=== PATIENT | female | born 1985 | race Caucasian/White ===

== ENCOUNTER 2017-03-12 15:48 | Emergency (ER) | payer MEDICAID ==
[2017-03-12 15:52] VITALS: O2SAT 95
[2017-03-12] MEDS ORDERED: KETOROLAC 30 MG/1 ML SDV IVP ONE (16:47)
[2017-03-12] MEDS ORDERED: DEXAMETHASONE 10 MG/ML VIAL IVP ONE (16:47)
[2017-03-12] MEDS ORDERED: PROMETHAZINE HCL 25 MG/ML INJ IVP ONE (16:47)
--- NOTE | 2017-03-12 16:47 | EDPHY ---
H & P Stated Complaint: OHARA today Time Seen by Provider: 03/12/17 16:46 HPI/ROS: CHIEF COMPLAINT: Migraine headache HISTORY OF PRESENT ILLNESS: Patient presents to the ED with complaints of an acute migraine headache. The symptoms began earlier today. Her migraine is fairly typical in nature and is characterizes severe right retro-orbital pain with radiation to her right occiput. The patient denies any associated numbness or weakness. She denies fever or recent infectious symptoms. The patient did take Tylenol and ibuprofen at home without improvement of her symptoms. Patient reports that she was last treated for migraine headache approximately 1 year ago in the emergency department. The patient denies any additional acute medical complaints. She currently rates her headache as an 8/ 10. REVIEW OF SYSTEMS: A comprehensive 10 point review of systems is otherwise negative aside from elements mentioned in the history of present illness. Source: Patient Exam Limitations: No limitations - Personal History LMP (Females 10-55): Hysterectomy Current Tetanus/Diphtheria Vaccine: Yes Current Tetanus Diphtheria and Acellular Pertussis (TDAP): Yes Tetanus Vaccine Date: <10yrs - Medical/Surgical History Hx Asthma: No Hx Chronic Respiratory Disease: No Hx Diabetes: No Hx Cardiac Disease: No Hx Renal Disease: No Hx Cirrhosis: No Hx Alcoholism: No Hx HIV/AIDS: No Hx Splenectomy or Spleen Trauma: No Other PMH: Ankle fx, preeclampsia, Migraine H/A, L OVARY REMOVED-CYST , PARTIAL HYSTERECTOMY - Social History Smoking Status: Current every day smoker - Physical Exam Exam: General Appearance: Alert, obese female, no acute distress Eyes: Pupils equal and round no pallor or injection ENT, Mouth: Mucous membranes moist Respiratory: There are no retractions, lungs are clear to auscultation Cardiovascular: Regular rate and rhythm Gastrointestinal: Abdomen is soft and nontender, no masses, bowel sounds normal Neurological: A&O, normal motor function, normal sensory exam, normal cranial nerves Skin: Warm and dry, no rashes Musculoskeletal: Neck is supple nontender, specifically no meningeal symptoms Extremities: symmetrical, full range of motion Constitutional: Initial Vital Signs Temperature (C) 37.2 C 03/12/17 15:50 Heart Rate 90 03/12/17 15:50 Respiratory Rate 16 03/12/17 15:50 Blood Pressure 118/84 H 03/12/17 15:50 O2 Sat (%) 95 03/12/17 15:50 O2 Delivery Mode Room Air Allergies/Adverse Reactions: amoxicillin trihydrate [From Augmentin] Allergy (Verified 03/11/17 17:23) metoclopramide HCl [From Reglan] Allergy (Verified 03/11/17 17:23) Sulfa (Sulfonamide Antibiotics) Allergy (Verified 03/11/17 17:23) sumatriptan [From Imitrex] Allergy (Verified 03/11/17 17:23) Home Medications: Medication Instructions Recorded Nortriptyline HCl 01/28/16 Hydrochlorothiazide 12.5 mg PO DAILY 03/11/17 Hydrocodone/APAP 5/325 5 mg PO 03/11/17 Medical Decision Making ED Course/Re-evaluation: The patient presents to the ED with migraine headache. She reports fairly typical symptoms. The patient had an IV established. She received IV Reglan, Decadron, Toradol and Phenergan. The patient also received 1 mg of IV Ativan. The patient received a L of normal saline. She had serial examinations in the ED by myself. The patient remained with a normal neurologic examination. The patient did have some improvement of her symptoms. At this point time I doubt the patient has meningitis or a critical GRIND OPERATOR emergency. I do feel the patient can continue to take ibuprofen and her regular prescribed medication for pain. The patient should follow up with her primary care provider for a recheck within the week. She is discharged home with customary aftercare instructions and return precautions. Differential Diagnosis: Differential diagnosis considered includes migraine headache, tension headache, anxiety syndrome, dehydration, metabolic abnormality - Data Points Medications Given: Discontinued Medications Dexamethasone (Decadron Injection) 10 mg IVP EDNOW ONE Stop: 03/12/17 16:48 Last Admin: 03/12/17 16:57 Dose: 10 mg Ketorolac Tromethamine (Toradol) 30 mg IVP EDNOW ONE Stop: 03/12/17 16:48 Last Admin: 03/12/17 16:57 Dose: 30 mg Lorazepam (Ativan Injection) 1 mg IVP EDNOW ONE Stop: 03/12/17 17:50 Last Admin: 03/12/17 17:52 Dose: 1 mg Promethazine HCl (Phenergan) 25 mg IVP EDNOW ONE Stop: 03/12/17 16:48 Last Admin: 03/12/17 16:57 Dose: 25 mg Departure - Departure Disposition: Home, Routine, Self-Care Clinical Impression: Migraine headache Condition: Good Instructions: Acute Headache (ED) Additional Instructions: 1. Take Ibuprofen or Motrin 600 mg by mouth three times a day. 2. Please continue your regular medications. 3. Please follow up with your primary care provider Referrals: Denise Pena NP [Primary Care Provider] - As per Instructions
[2017-03-12] MEDS ORDERED: LORazepam 2 MG/ML INJ IVP ONE (17:49)
[2017-03-12 18:37] VITALS: BP 115/74; PULSE 68; RESP 18; TEMP 98.1
== END 2017-03-12 18:49 | disposition home or self-care (01) ==
DX: G43.909 Migraine, unspecified, not intractable, without status migrainosus (principal); F17.200 Nicotine dependence, unspecified, uncomplicated
CPT/HCPCS: 96374; J1100; J1885; J2060; J2550

== ENCOUNTER 2017-03-13 13:01 | Day surgery (SDC) | payer MEDICAID ==
[2017-03-13] MEDS ORDERED: MIDAZOLAM 2 MG/2 ML VIAL ONE (14:58)
[2017-03-13] MEDS ORDERED: NALOXONE HCL 0.4 MG/ML INJ ONE (14:59)
[2017-03-13] MEDS ORDERED: fentaNYL 100 MCG/2 ML INJ ONE (14:59)
[2017-03-13] MEDS ORDERED: FLUMAZENIL 0.5 MG/5 ML MDV IVP ONE (14:59)
[2017-03-13] MEDS ORDERED: TRIAMCINOLONE ACETONIDE 200 MG/5 ML MDV IM ONE (17:29)
[2017-03-13] MEDS ORDERED: IOPAMIDOL (ISOVUE-M 300) 15 ML VIAL ONE (17:29)
[2017-03-13 18:15] VITALS: RESP 12
[2017-03-13 18:19] VITALS: BP 128/87; O2SAT 100
[2017-03-13 18:41] VITALS: PULSE 67
== END 2017-03-13 18:27 | disposition home or self-care (01) ==
LOC: FIMAGING 13:01
PROVIDERS: ATTEND Nurse Practitioner Family
PROC: 3E0S3BZ Introduction of Anesthetic Agent into Epidural Space, Percutaneous Approach (ICD-10-PCS; principal; 2017-03-13 17:40)
PROC: 3E0S33Z Introduction of Anti-inflammatory into Epidural Space, Percutaneous Approach (ICD-10-PCS; principal; 2017-03-13 17:40)
DX: M54.16 Radiculopathy, lumbar region (principal)
CPT/HCPCS: J2250; J2310; J3010; J3301; Q9967

== ENCOUNTER 2017-08-19 19:47 | Emergency (ER) | payer MEDICAID ==
[2017-08-19 19:54] VITALS: RESP 16; O2SAT 96
--- NOTE | 2017-08-19 20:46 | EDPHY ---
H & P Stated Complaint: Sore throat, cough, dizzy, congestion - Personal History LMP (Females 10-55): Hysterectomy Current Tetanus/Diphtheria Vaccine: Yes Current Tetanus Diphtheria and Acellular Pertussis (TDAP): Yes Tetanus Vaccine Date: <10yrs - Medical/Surgical History Hx Asthma: No Hx Chronic Respiratory Disease: No Hx Diabetes: No Hx Cardiac Disease: No Hx Renal Disease: No Hx Cirrhosis: No Hx Alcoholism: No Hx HIV/AIDS: No Hx Splenectomy or Spleen Trauma: No Other PMH: Ankle fx, preeclampsia, Migraine H/A, L OVARY REMOVED-CYST , PARTIAL HYSTERECTOMY, ear tubes, TIA - Social History Smoking Status: Current every day smoker Time Seen by Provider: 08/19/17 20:21 HPI/ROS: CHIEF COMPLAINT: URI symptoms x1 week HISTORY OF PRESENT ILLNESS: 32-year-old immunocompetent female, daily smoker, complaining of 1 week of URI symptoms, congestion, nonproductive cough, sore throat. No influenza vaccination. Her partner sick with similar. Does not feel like she is getting him improved. Denies: Abdominal pain, nausea, vomiting, rash, nuchal rigidity. REVIEW OF SYSTEMS: A ten point review of systems was performed and is negative with the exception of the items mentioned in the HPI PAST MEDICAL & SURGICAL HISTORY: No pertinent medical or surgical history SOCIAL HISTORY: Daily smoker PHYSICAL EXAM (Prior to examination, patient consented to physical exam, hands were washed and my usual and customary physical exam procedures followed) 1) GENERAL: Well-developed, well-nourished, alert and oriented. Appears to be in no acute distress. 2) HEAD: Normocephalic, atraumatic 3) HEENT: Pupils equal, round, reactive to light bilaterally. Sclera anicteric. Nasopharynx, oropharynx, clear, no lesions. 4) NECK: Full range of motion, no meningeal signs. 5) LUNGS: Clear auscultation bilaterally, no wheezes, no rhonchi, no retractions. 6) HEART: Regular rate and rhythm, no murmur, no heave, no gallop. 7) ABDOMEN: No guarding, no rebound, no focal tenderness, negative McBurney's, negative Marcano's, negative Rovsing's, negative peritoneal sign, 8) MUSCULOSKELETAL: Moving all extremities, no focal areas of tenderness, no obvious trauma. No peripheral edema or discoloration. 9) BACK: No CVA tenderness, no midline vertebral tenderness, no fluctuance, no step-off, no obvious trauma, no visual or palpable abnormality. 10) SKIN: No rash, no petechiae. 11) Psychiatric: Patient is oriented X 3, there is no agitation. DIFFERENTIAL DIAGNOSIS: In no particular include but limited to influenza, pneumonia, bronchitis (Laura Walters) Constitutional: Initial Vital Signs Heart Rate 107 H 08/19/17 19:50 Respiratory Rate 16 08/19/17 19:50 Blood Pressure 138/101 H 08/19/17 19:50 O2 Sat (%) 96 08/19/17 19:50 O2 Delivery Mode Room Air O2 (L/minute) 37.1 Allergies/Adverse Reactions: amoxicillin trihydrate [From Augmentin] Allergy (Verified 03/11/17 17:23) diphenhydramine [From Benadryl] Allergy (Verified 08/19/17 19:54) metoclopramide HCl [From Reglan] Allergy (Verified 03/11/17 17:23) Sulfa (Sulfonamide Antibiotics) Allergy (Verified 03/11/17 17:23) sumatriptan [From Imitrex] Allergy (Verified 03/11/17 17:23) Home Medications: Medication Instructions Recorded AZITHROMYCIN [Z-PACK] 500 mg PO DAILY #1 packet 08/19/17 Albuterol [Proventil Inhaler HFA 1 - 2 puffs IH Q4PRN PRN #1 mdi 08/19/17 (*)] Benzonatate [Tessalon Pearles (RX)] 200 mg PO TID PRN #15 cap 08/19/17 Fluconazole [Diflucan (*)] 150 mg PO ONCE #0 tab 08/19/17 fentaNYL 08/19/17 oxyCODONE IR 08/19/17 Medical Decision Making ED Course/Re-evaluation: I do not identify indication for chest x-ray as the patient's lungs are clear bilaterally, has a normal pulse ox, speaking full sentences, no signs of respiratory distress. Doubt influenza. The patient understands that this diagnosis is provisional and can never be 100% accurate. Usual and customary warnings were given concerning the clinical impression and all the patient's questions were answered. The patient was instructed to return to the emergency department should her symptoms worsen or return, or develop any new symptoms, otherwise to followup as directed in discharge instructions. Care of patient under supervision of secondary supervising physician Dr Dent . Because patient's in a prescription for antibiotics request Diflucan noting that she will commonly develop yeast vaginitis. (Laura Walters) The patient was evaluated and managed by the physician assistant corporate controller. I have reviewed this chart and I agree with the findings and plan of care as documented , as indicated by my signature. I am the secondary supervising physician. ( Crystal Dent) Departure - Departure Disposition: Home, Routine, Self-Care Clinical Impression: Upper respiratory infection Condition: Good Instructions: Upper Respiratory Infection (ED) Additional Instructions: Return to the emergency department immediately for change in breathing habits, change in voice, change in swallowing habits, change in mental status, or any other symptoms that concern you. Referrals: [facility],. [Clinic] - 2-3 days, call for appt. Prescriptions: Albuterol [Proventil Inhaler HFA (*)] 1 - 2 puffs IH Q4PRN PRN #1 mdi PRN Reason: Cough, Moderate AZITHROMYCIN [Z-PACK] 500 mg PO DAILY #1 packet Benzonatate [Tessalon Pearles (RX)] 200 mg PO TID PRN #15 cap PRN Reason: Cough, Moderate Fluconazole [Diflucan (*)] 150 mg PO ONCE #0 tab
[2017-08-19 20:53] VITALS: BP 141/74; PULSE 74; TEMP 97.9
== END 2017-08-19 20:53 | disposition home or self-care (01) ==
DX: J06.9 Acute upper respiratory infection, unspecified (principal); F17.200 Nicotine dependence, unspecified, uncomplicated

== ENCOUNTER 2018-01-04 22:18 | Emergency (ER) | payer MEDICAID ==
--- NOTE | 2018-01-04 22:33 | EDPHY ---
H & P Stated Complaint: OHARA, N/V x3 days Time Seen by Provider: 01/04/18 22:32 HPI/ROS: HPI CHIEF COMPLAINT: Right-sided headache, nausea, vomiting HISTORY OF PRESENT ILLNESS: Patient is a 32-year-old female, she has a history of migraine headaches similar to this headache. She presents emergency room the right-sided throbbing headache behind her right eye. And right forehead. She denies any neck pain. Denies trauma. Denies chest pain or shortness of breath. Denies fever. States this been going on for 2-3 days. She has had associated nausea vomiting with it. Photophobia and phonophobia. States feels very similar to previous migraines but somewhat more intense. Denies any visual disturbance. She decided come the emergency room as her pain is persisted despite taking oral Dilaudid. Past Medical History: Migraine headaches, chronic back pain on chronic Dilaudid. Past Surgical History: No recent surgical history Social History: Denies daily use of drugs alcohol tobacco. Family History: Noncontributory ROS REVIEW OF SYSTEMS: A comprehensive 10 point review of systems is otherwise negative aside from elements mentioned in the history of present illness. Exam Constitutional appears nontoxic no acute distress, triage nursing summary reviewed, vital signs reviewed, awake/alert. Eyes normal conjunctivae and sclera, EOMI, PERRLA. HENT normal inspection, atraumatic, moist mucus membranes, no epistaxis, neck supple/ no meningismus, no raccoon eyes. Respiratory clear to auscultation bilaterally, normal breath sounds, no respiratory distress, no wheezing. Cardiovascular rate normal, regular rhythm, no murmur, no edema, distal pulses normal. Gastrointestinal soft, non-tender, no rebound, no guarding, normal bowel sounds, no distension, no pulsatile mass. Genitourinary no CVA tenderness. Musculoskeletal no midline vertebral tenderness, full range of motion, no calf swelling, no tenderness of extremities, no meningismus, good pulses, neurovascularly intact. Skin pink, warm, & dry, no rash, skin atraumatic. Neurologic normal neurological exam no focal neuro deficit or cranial nerve deficit on exam, awake, alert and oriented x 3, AAOx3, moves all 4 extremities equally, motor intact, sensory intact, CN II-XII intact, normal cerebellar, normal vision, normal speech. Psychiatric normal mood/affect. Heme/Lymph/Immune no lymphadenopathy. Differential Diagnosis: Includes but is not limited to in a particular order migraine headache, tension headache, cluster headache, intracranial bleed, tumor , dehydration electrolyte disturbance, subarachnoid Medical Decision Making: Plan for this patient IV establishment with IV medication for migraine headache. Gentle IV fluids. Check basic blood work, CT scan head without contrast. Re-evaluate. Re-evaluation: CT scan head without contrast: Negative for acute bleed. Called to me by Dr. Ledesma. [id number]: Patient re-evaluated this time her neurological exam is unremarkable. She is resting comfortably. Patient CT scan of the head does not show evidence of acute bleed. She is feeling better after IV medications including migraine cocktail. IV fluids. She is comfortable being discharged home. I do recommend she follows up with her doctor. Will give a prescription for [place] [employer] supply for pain control. Return precautions discussed with her. She understands return emergency room she develops worsening headache, fever, vomiting. Source: Patient - Personal History LMP (Females 10-55): Hysterectomy Current Tetanus/Diphtheria Vaccine: Yes Tetanus Vaccine Date: <10yrs - Medical/Surgical History Hx Asthma: No Hx Chronic Respiratory Disease: No Hx Diabetes: No Hx Cardiac Disease: No Hx Renal Disease: No Hx Cirrhosis: No Hx Alcoholism: No Hx HIV/AIDS: No Hx Splenectomy or Spleen Trauma: No Other PMH: Ankle fx, preeclampsia, Migraine H/A, L OVARY REMOVED-CYST , PARTIAL HYSTERECTOMY, ear tubes, TIA - Social History Smoking Status: Current every day smoker Constitutional: Initial Vital Signs Temperature (C) 36.7 C 01/04/18 22:20 Heart Rate 106 H 01/04/18 22:20 Respiratory Rate 18 01/04/18 22:20 Blood Pressure 128/104 H 01/04/18 22:20 O2 Sat (%) 96 01/04/18 22:20 O2 Delivery Mode Room Air Allergies/Adverse Reactions: amoxicillin trihydrate [From Augmentin] Allergy (Verified 03/11/17 17:23) diphenhydramine [From Benadryl] Allergy (Verified 08/19/17 19:54) metoclopramide HCl [From Reglan] Allergy (Verified 03/11/17 17:23) Sulfa (Sulfonamide Antibiotics) Allergy (Verified 03/11/17 17:23) sumatriptan [From Imitrex] Allergy (Verified 03/11/17 17:23) Home Medications: Medication Instructions Recorded oxyCODONE IR 08/19/17 Dilaudid 01/04/18 Hydrocodone/APAP [[place] 1 - 2 tab PO Q4H PRN #7 tab 01/04/18325] Medical Decision Making - Diagnostics Imaging Results: Imaging Impressions Head CT 01/04/18 22:37 Impression: Mild chronic sinus related change. Otherwise normal CT head without contrast. Results called and discussed with Trip Pop MD at 01/04/2018 23:11. - Data Points Laboratory Results: Laboratory Results 01/04/18 22:42 01/04/18 22:42 01/04/18 01/04/18 22:42 22:42 WBC 8.01 10^3/uL 10^3/uL (3.80-9.50) RBC 5.21 10^6/uL 10^6/uL (4.18-5.33) Hgb 15.7 g/dL g/dL (12.6-16.3) Hct 44.9 % % (38.0-47.0) MCV 86.2 fL fL (81.5-99.8) MCH 30.1 pg pg (27.9-34.1) MCHC 35.0 g/dL g/dL (32.4-36.7) RDW 12.2 % % (11.5-15.2) Plt Count 234 10^3/uL 10^3/uL (150-400) MPV 10.2 fL fL (8.7-11.7) Neut % (Auto) 64.4 % % (39.3-74.2) Lymph % (Auto) 23.6 % % (15.0-45.0) Blount % (Auto) 8.4 % % (4.5-13.0) Eos % (Auto) 2.5 % % (0.6-7.6) Baso % (Auto) 0.6 % % (0.3-1.7) Nucleat RBC Rel Count 0.0 % % (0.0-0.2) Absolute Neuts (auto) 5.16 10^3/uL 10^3/uL (1.70-6.50) Absolute Lymphs (auto) 1.89 10^3/uL 10^3/uL (1.00-3.00) Absolute Monos (auto) 0.67 10^3/uL 10^3/uL (0.30-0.80) Absolute Eos (auto) 0.20 10^3/uL 10^3/uL (0.03-0.40) Absolute Basos (auto) 0.05 10^3/uL 10^3/uL (0.02-0.10) Absolute Nucleated RBC 0.00 10^3/uL 10^3/uL (0-0.01) Immature Gran % 0.5 % % (0.0-1.1) Immature Gran # 0.04 10^3/uL 10^3/uL (0.00-0.10) Sodium 138 mEq/L mEq/L (135-145) Potassium 3.5 mEq/L mEq/L (3.3-5.0) Chloride 104 mEq/L mEq/L (97-110) Carbon Dioxide 22 mEq/l mEq/l (22-31) Anion Gap 12 mEq/L mEq/L (8-16) BUN 12 mg/dL mg/dL (7-23) Creatinine 0.6 mg/dL mg/dL (0.6-1.0) Estimated GFR > 60 Glucose 106 mg/dL H mg/dL (70-100) Calcium 8.4 mg/dL L mg/dL (8.5-10.4) Medications Given: Discontinued Medications Dexamethasone (Decadron Injection) 10 mg IVP EDNOW ONE Stop: 01/04/18 22:37 Last Admin: 01/04/18 22:48 Dose: 10 mg Hydromorphone HCl (Dilaudid) 1 mg IVP EDNOW ONE Stop: 01/04/18 22:38 Last Admin: 01/04/18 22:48 Dose: 1 mg Sodium Chloride (Ns) 1,000 mls @ 0 mls/hr IV ONCE ONE; Wide Open PRN Reason: Protocol Stop: 01/04/18 22:37 Last Admin: 01/04/18 22:47 Dose: 1,000 mls Ketorolac Tromethamine (Toradol) 30 mg IVP EDNOW ONE Stop: 01/04/18 22:37 Last Admin: 01/04/18 22:49 Dose: 30 mg Promethazine HCl (Phenergan) 12.5 mg IVP ONCE ONE Stop: 01/04/18 22:38 Last Admin: 01/04/18 22:48 Dose: 12.5 mg Departure - Departure Disposition: Home, Routine, Self-Care Clinical Impression: Migraine headache Qualifiers: Migraine type: other Status migrainosus presence: without status migrainosus Intractability: not intractable Qualified Code(s): G43.809 - Other migraine, not intractable, without status migrainosus Condition: Good Instructions: Migraine Headache (ED) Additional Instructions: 1. Low stimulus environment over the next 2 days. 2. Follow up with her primary care doctor or neurologist. 3. Return if worsening symptoms. Referrals: NONE *PRIMARY CARE P,. [Primary Care Provider] - As per Instructions Prescriptions: Hydrocodone/APAP 5/325 [[place] 5/325] 1 - 2 tab PO Q4H PRN #7 tab PRN Reason: Pain, Moderate
[2018-01-04] MEDS ORDERED: NS 1,000 ML IV ONE (22:36)
[2018-01-04] MEDS ORDERED: DEXAMETHASONE 10 MG/ML VIAL IVP ONE (22:36)
[2018-01-04] MEDS ORDERED: KETOROLAC 30 MG/1 ML SDV IVP ONE (22:36)
[2018-01-04] MEDS ORDERED: PROMETHAZINE HCL 25 MG/ML INJ IVP ONE (22:37)
[2018-01-04] MEDS ORDERED: HYDROmorphONE/DILAUDID 2 MG/ML INJ IVP ONE (22:37)
[2018-01-04 22:52] LABS: PLATELET COUNT 234 10^3/uL (150-400)
[2018-01-04] MEDS ORDERED: HYDROCODONE/APAP 5/325 TAB PO ONE (23:54)
[2018-01-05 00:03] VITALS: BP 128/94
== END 2018-01-05 | disposition home or self-care (01) ==
DX: G43.809 Other migraine, not intractable, without status migrainosus (principal); F17.200 Nicotine dependence, unspecified, uncomplicated
CPT/HCPCS: 96374; J1100; J1170; J1885; J2550

== ENCOUNTER 2018-06-16 12:09 | Day surgery (SDC) | payer MEDICAID ==
[2018-06-16] MEDS ORDERED: fentaNYL 100 MCG/2 ML INJ IVP PRN (12:34)
[2018-06-16] MEDS ORDERED: MIDAZOLAM 2 MG/2 ML VIAL IVP PRN (12:34)
[2018-06-16] MEDS ORDERED: FLUMAZENIL 0.5 MG/5 ML MDV IVP PRN (12:34)
[2018-06-16] MEDS ORDERED: NALOXONE HCL 0.4 MG/ML INJ IVP PRN (12:34)
[2018-06-16] MEDS ORDERED: NS 1,000 ML IV SCH (12:45)
[2018-06-16] MEDS ORDERED: TRIAMCINOLONE ACETONIDE 40 MG/ML VIAL ONE (13:19)
[2018-06-16] MEDS ORDERED: ONDANSETRON 4 MG/2 ML VIAL IVP PRN (14:24)
--- NOTE | 2018-06-16 14:26 | PDPROPOC ---
Sedation Plan of Care ASA Classification: ASA 2 Mallampati Score: Class 2 Mallampati Reference Image:
--- NOTE | 2018-06-16 14:26 | PDRADPN ---
Radiology Procedure Note Date of Procedure: 06/16/18 Radiologist: Muriel Hernández Anesthesia: IV Sedation Pre-op Diagnosis: back pain Post-op Diagnosis: same Inf/Abcess present in the surg proc area at time of surgery?: No
--- NOTE | 2018-06-16 14:27 | PDRADPRE ---
Radiology History & Physical Indication for procedure: back pain Home medications: Hydrocodone/APAP 5/325 [[place] 5/325] 1 tab PO Q6HRS 06/14/18 [Last Taken ] Meloxicam 7.5 mg PO BID 06/14/18 [Last Taken 06/15/18] Ranitidine HCl 150 mg PO PRN PRN 06/14/18 [Last Taken 06/16/18] Topamax 25 mg PO BID 06/14/18 [Last Taken 06/15/18] Allergies/Adverse Reactions: amoxicillin trihydrate [From Augmentin] Allergy (Verified 06/14/18 17:41) diphenhydramine [From Benadryl] Allergy (Verified 06/14/18 17:41) metoclopramide HCl [From Reglan] Allergy (Verified 06/14/18 17:41) Sulfa (Sulfonamide Antibiotics) Allergy (Verified 06/14/18 17:41) sumatriptan [From Imitrex] Allergy (Verified 06/14/18 17:41) Mental status: A&Ox3 Heart exam: regular rate and rhythm
[2018-06-16 15:20] VITALS: BP 112/78
[2018-06-16] MEDS ORDERED: IOPAMIDOL (ISOVUE-M 300) 15 ML VIAL ONE (16:57)
== END 2018-06-16 15:25 | disposition home or self-care (01) ==
LOC: FIMAGING 12:09
PROVIDERS: ATTEND Nurse Practitioner Family
PROC: 3E0S33Z Introduction of Anti-inflammatory into Epidural Space, Percutaneous Approach (ICD-10-PCS; principal; 2018-06-16 14:37)
PROC: 3E0S3BZ Introduction of Anesthetic Agent into Epidural Space, Percutaneous Approach (ICD-10-PCS; principal; 2018-06-16 14:37)
DX: M54.17 Radiculopathy, lumbosacral region (principal)
CPT/HCPCS: J2250; J2310; J3010; J3301; Q9967

== ENCOUNTER 2018-10-08 12:05 | Day surgery (SDC) | payer MEDICAID ==
[2018-10-08] MEDS ORDERED: fentaNYL 100 MCG/2 ML INJ IVP PRN (12:10)
[2018-10-08] MEDS ORDERED: NALOXONE HCL 0.4 MG/ML INJ IVP PRN (12:10)
[2018-10-08] MEDS ORDERED: MIDAZOLAM 2 MG/2 ML VIAL IVP PRN (12:10)
[2018-10-08] MEDS ORDERED: FLUMAZENIL 0.5 MG/5 ML MDV IVP PRN (12:10)
[2018-10-08] MEDS ORDERED: NS 1,000 ML IV SCH (12:15)
[2018-10-08] MEDS ORDERED: ONDANSETRON 4 MG/2 ML VIAL IVP PRN (13:43)
[2018-10-08] MEDS ORDERED: ACETAMINOPHEN 325 MG TAB PO PRN (13:43)
--- NOTE | 2018-10-08 13:44 | PDPROPOC ---
Sedation Plan of Care Sedation Plan of Care: vital signs stable, mental status noted, patient educated of risks, benefits, alternatives, patient can tolerate sedation ASA Classification: ASA 2 Planned drugs: fentanyl, midazolam Mallampati Score: Class 1 Mallampati Reference Image: Patient passed 3-3-2 rule?: Yes
--- NOTE | 2018-10-08 13:45 | PDRADPRE ---
Radiology History & Physical Indication for procedure: back pain (lumbago/radiculopathy BLE) Home medications: Hydrocodone/APAP 5/325 [[place] 5/325] 1 tab PO Q6HRS 06/14/18 [Last Taken ] Ranitidine HCl 150 mg PO PRN PRN 06/14/18 [Last Taken 10/08/18] Topamax 25 mg PO BID 06/14/18 [Last Taken 10/08/18] Ibuprofen 800 mg PO PRN PRN 10/06/18 [Last Taken 10/08/18] Allergies/Adverse Reactions: amoxicillin [From Augmentin] Allergy (Verified 10/06/18 08:54) Vomiting clavulanic acid [From Augmentin] Allergy (Verified 10/06/18 08:54) diphenhydramine [From Benadryl] Allergy (Verified 06/14/18 17:41) metoclopramide HCl [From Reglan] Allergy (Verified 06/14/18 17:41) Sulfa (Sulfonamide Antibiotics) Allergy (Verified 06/14/18 17:41) sumatriptan [From Imitrex] Allergy (Verified 06/14/18 17:41) Mental status: A&Ox3 Heart exam: regular rate and rhythm Lungs exam: clear to auscultation Mallampati Score: Class 2
--- NOTE | 2018-10-08 13:46 | PDRADPN ---
Radiology Procedure Note Date of Procedure: 10/08/18 Radiologist: Dm Hagen Anesthesia: IV Sedation Pre-op Diagnosis: LBP Post-op Diagnosis: LBP Indication: LBP/radiculopathy Procedure: Lumbar JONNATHAN Finding(s): Epidural contrast. Please see separately dictated procedure for full details. Inf/Abcess present in the surg proc area at time of surgery?: No
[2018-10-08] MEDS ORDERED: oxyCODONE IR 5 MG TAB PO ONE (14:25)
[2018-10-08 15:38] VITALS: BP 105/84
== END 2018-10-08 15:05 | disposition home or self-care (01) ==
LOC: FIMAGING 12:05
PROVIDERS: ATTEND Nurse Practitioner Family
DX: M54.16 Radiculopathy, lumbar region (principal); Q76.49 Other congenital malformations of spine, not associated with scoliosis; E66.9 Obesity, unspecified; F43.10 Post-traumatic stress disorder, unspecified; F17.200 Nicotine dependence, unspecified, uncomplicated; Z68.38 Body mass index [BMI] 38.0-38.9, adult
CPT/HCPCS: J2250; J2310; J3010